=== PATIENT | male | born 1985 | race Caucasian/White ===

== ENCOUNTER 2016-06-28 21:48 | Emergency (ER) | payer OTHER ==
[~2016-06-28] VITALS: Ht 185.4 cm; Wt 74.8 kg
[2016-06-28 22:10] LABS: ABSOLUTE BASOPHIL COUNT 0 /CUMM (0.0-0.2); ABSOLUTE EOSINOPHIL COUNT 0 /CUMM (0.0-0.7); ABSOLUTE GRANULOCYTE CT 2.8 /CUMM (1.4-6.5); ABSOLUTE LYMPH COUNT 1.6 /CUMM (1.2-3.4); ABSOLUTE MONOCYTE COUNT 0.4 /CUMM (0.10-0.60); BASOPHIL % 0.9 % (0.0-2.0); EOSINOPHIL % 0.9 % (0-5); GRANULOCYTE % 57.3 % (42.2-75.2); HEMATOCRIT 43.6 % (42-52); MEAN CORPUSCULAR HGB 28.4 PG (27.0-31.0); MEAN CORPUSCULAR HGB CONC 33.6 G/DL (33.0-37.0); MEAN CORPUSCULAR VOLUME 84.6 FL (80.0-94.0); MEAN PLATELET VOLUME 6.5 FL (7.4-10.4); PLATELET COUNT 247 /CUMM (130-400); RBC DISTRIBUTION WIDTH 13.8 % (11.5-14.5); RED BLOOD CELL CT 5.15 /CUMM (4.70-6.10); WHITE BLOOD CELL COUNT 4.9 /CUMM (4.8-10.8)
--- NOTE | 2016-06-28 23:10 | ED GI/GU/ABDOMINAL COMPLAINT ---
History of Present Illness General Chief Complaint: General Adult Stated Complaint: VOMITING BLOOD Source: patient, family Exam Limitations: no limitations Vital Signs & Intake/Output Vital Signs & Intake/Output Vital Signs Date Time Temp Pulse Resp B/P Pulse O2 O2 Flow FiO2 Ox Delivery Rate 06/29 0017 98.2 59 18 134/92 98 Room Air 06/28 2153 98.3 78 20 115/81 96 Room Air ED Intake and Output 06/29 0000 06/28 1200 Intake Total Output Total Balance Patient 165 lb Weight Allergies Coded Allergies: No Known Drug Allergies (NKDA 06/28/16) Reconcile Medications No Known Home Medications Triage Note: PT TO ED C/O VOMITTING BLOOD OFF AND ON FOR A COUPLE YEARS. DX WITH HIATAL HERNIA 5 YRS AGO. STATES HAS GOTTEN MORE FREQUENT AND PAINFUL. DOES DRINK "MORE THAN I SHOULD" ADMITS TO 1/2-1 PINT OF VODKA DAILY. INJECTED HEROIN YESTERDAY. DOES TAKE 50 MG METHADONE DAILY. HAS NOT STOPPED DRINKING IN A COUPLE OF YEARS. DENIES PMH OF SEIZURES WHEN HE STOPS DRINKING IS IN IOP R/T PMH OF DRUG ABUSE. HR 78 Triage Nurses Notes Reviewed? yes HPI: Patient states that he has been vomiting bright red blood since earlier this afternoon. Patient states that he has vomited approximately 6 times with bright red blood each time. Patient states he had vomited coffee ground material in the past and saw a retail sales professional. He had an endoscopy and was told that he had a tear in his esophagus as well as a hiatal hernia. Patient states she was not put on any medications and has not had any problems since until today. Patient is now complaining of sharp stabbing abdominal pain diffusely. There is no radiation outside of the abdominal area. The pain is constant. He rates the pain as 7 out of 10. There are no aggravating or mitigating factors. There is no diarrhea. Past History Travel History Traveled to [place] past 21 day No Medical History Any Pertinent Medical History? see below for history Gastrointestinal: hiatal hernia Psychiatric: substance abuse Surgical History Surgical History: non-contributory Psychosocial History What is your primary language Frisian Tobacco Use: Never used ETOH Use: alcoholic Illicit Drug Use: heroin Family History Hx Contributory? No Review of Systems Review of Systems Constitutional: Reports: no symptoms. EENTM: Reports: no symptoms. Respiratory: Reports: no symptoms. Cardiovascular: Reports: no symptoms. GI: Reports: see HPI, abdominal pain, nausea, vomiting. Genitourinary: Reports: no symptoms. Musculoskeletal: Reports: no symptoms. Skin: Reports: no symptoms. Neurological/Psychological: Reports: no symptoms. Hematologic/Endocrine: Reports: no symptoms. Immunologic/Allergic: Reports: no symptoms. All Other Systems: Reviewed and Negative Physical Exam Physical Exam General Appearance: well developed/nourished, alert, awake, anxious, moderate distress Head: atraumatic, normal appearance Eyes: Bilateral: PERRL, EOMI. Ears, Nose, Throat, Mouth: hearing grossly normal, DRY MUCUS MEMBRANES Neck: normal inspection, supple, full range of motion Respiratory: normal breath sounds, chest non-tender, no respiratory distress, lungs clear Cardiovascular: regular rate/rhythm, normal peripheral pulses Gastrointestinal: normal bowel sounds, soft, no organomegaly, tenderness ( DIFFUSE), NO REBOUND OR GUARDING Back: normal inspection, normal range of motion Extremities: normal range of motion Neurologic/Psych: no motor/sensory deficits, awake, alert, oriented x 3, normal gait, normal mood/affect Skin: intact, normal color, warm/dry Core Measures ACS in differential dx? No Severe Sepsis Present: No Septic Shock Present: No Progress Differential Diagnosis: esophageal varices, gastritis, hepatitis, ischemic bowel , inflamm bowel dis, pancreatitis, peptic ulcer, PUD/GERD, perforated viscous Plan of Care: Orders Procedure Date/time Status URINE DRUG SCREEN FOR ER ONLY 06/28 2158 Complete URINALYSIS 06/28 2158 Complete LIPASE 06/28 2158 Complete ETHANOL 06/28 2158 Complete COMPREHENSIVE METABOLIC PANEL 06/28 2158 Complete CBC WITHOUT DIFFERENTIAL 06/28 2158 Complete AMYLASE 06/28 2158 Complete Laboratory Tests 06/28/16 2302: Methadone Screen > 735 H, Barbiturate Screen < 60, Ur Phencyclidine Scrn 8.30, Amphetamines Screen < 100, U Benzodiazepines Scrn < 85, Urine Cocaine Screen 95, Urine Cannabis Screen < 5.00, Urinalysis LIGHT H, Urine Color YEL, Urine Clarity HAZY H, Urine pH 6.0, Ur Specific [place] 1.020, Urine Protein NEG, Urine Ketones NEG, Urine Nitrite NEG, Urine Bilirubin NEG, Urine Urobilinogen 0.2, Ur Leukocyte Esterase NEG, Ur Microscopic SEDIMENT EXAMINED, Urine RBC RARE , Urine WBC 1-3 H, Ur Epithelial Cells FEW, Urine Bacteria FEW H, Urine Mucus FEW, Urine Hemoglobin TRACE-INTACT H, Urine Glucose NEG 06/28/16 2202: Anion Gap 11, Estimated GFR > 60, BUN/Creatinine Ratio 13.0, Glucose 95, Calcium 9.6, Total Bilirubin 0.6, AST 43, ALT 42, Alkaline Phosphatase 69, Total Protein 7.9, Albumin 4.8, Globulin 3.1, Albumin/Globulin Ratio 1.5, Amylase 85, Lipase 72, CBC w Diff NO MAN DIFF REQ, RBC 5.15, MCV 84.6, MCH 28.4, RDW 13.8, MPV 6.5 L, Gran % 57.3, Lymphocytes % 31.9, Monocytes % 9.0, Eosinophils % 0.9, Basophils % 0.9, Absolute Granulocytes 2.8, Absolute Lymphocytes 1.6, Absolute Monocytes 0.4, Absolute Eosinophils 0, Absolute Basophils 0, PUBS MCHC 33.6, Serum Alcohol 82.0 Diagnostic Imaging: Viewed by Me: CT Scan. Discussed w/RAD: CT Scan. Radiology Impression: PATIENT: AMANUEL INFANTE PRESENT AGE: 31 PATIENT ACCOUNT NO: [id number] : 85 LOCATION: [facility] ORDERING PHYSICIAN: LESLIE HORN MD SERVICE DATE: 06/28/16 EXAM TYPE: CAT - CT ABD & PELVIS W IV CONTRAST EXAMINATION: CT ABDOMEN AND PELVIS WITH CONTRAST CLINICAL INFORMATION: Diffuse abdominal pain. Question perforation. COMPARISON: No relevant prior imaging is available. TECHNIQUE: Multidetector volumetric imaging was performed of the abdomen and pelvis before and after the IV administration of 95 mL of Optiray 320 intravenous contrast. Sagittal and coronal reformatted images were obtained on the technologist's workstation. DLP: 246.14 mGy-cm FINDINGS: LUNG BASES: Lung bases are clear. There is no pleural or pericardial effusion. LIVER, GALLBLADDER, AND BILIARY TREE: Liver attenuation is homogeneous with no evidence of discrete mass. The gallbladder is normal. There is no intrahepatic or extrahepatic biliary ductal dilatation. PANCREAS: Unremarkable. SPLEEN: Unremarkable. ADRENAL GLANDS: Unremarkable. KIDNEYS AND URETERS: The kidneys demonstrate symmetric corticomedullary enhancement. There is no hydronephrosis. No worrisome perinephric inflammation or collection. There is no nephrolithiasis and no worrisome mass or calcification along the expected course of the right or left ureters. BLADDER: Unremarkable. GASTROINTESTINAL TRACT: The stomach and small bowel are normal. The appendix is normal. Intraluminal gas and stool is visualized within the colon. A few scattered diverticula are visualized within the distal descending colon and sigmoid colon. No abnormal perirectal or presacral inflammation. There is no free intraperitoneal air or fluid. ABDOMINAL WALL: No significant hernia is appreciated. LYMPH NODES: There are a few scattered nonspecific mesenteric lymph nodes. VASCULAR: The abdominal aorta and inferior vena cava are unremarkable. PELVIC VISCERA: Unremarkable. OSSEOUS STRUCTURES: There is no worrisome lytic or blastic osseous lesion. No acute fracture. IMPRESSION: There are a few scattered nonspecific mesenteric lymph nodes. Otherwise unremarkable CT scan of abdomen and pelvis. No evidence of small bowel obstruction. No free intraperitoneal air or fluid. The appendix is normal. DICTATED BY: DEONNA GR MD DATE/TIME DICTATED:06/29/1657 RESTROOMS OR LOUNGES MAID:GEORGINA DATE/TIME TRANSCRIBED:57 CONFIDENTIAL, DO NOT COPY WITHOUT APPROPRIATE AUTHORIZATION. < Electronically signed in Other Vendor System> SIGNED BY: DEONNA GR MD 06/29/16 0120 Initial ED EKG: none Departure Departure Disposition: HOME OR SELF CARE Condition: Stable Clinical Impression Primary Impression: Upper GI bleed Referrals: KEYLA SALAS MD PATIENT HAS NO PRIMARY CARE DR (PCP/Family) Additional Instructions: TAKE MEDICINE PRESCRIBED RETURN FOR ANY CONCERNS Departure Forms: Customer Survey General Discharge Information Prescriptions: Current Visit Scripts Esomeprazole (Nexium) 1 CAP PO DAILY #30 CAP Ondansetron (Zofran Odt) 1 TAB SL TID PRN NAUSEA #10 TAB
--- NOTE | 2016-06-29 01:20 | CT SCAN REPORT ---
EXAMINATION: CT ABDOMEN AND PELVIS WITH CONTRAST CLINICAL INFORMATION: Diffuse abdominal pain. Question perforation. COMPARISON: No relevant prior imaging is available. TECHNIQUE: Multidetector volumetric imaging was performed of the abdomen and pelvis before and after the IV administration of 95 mL of Optiray 320 intravenous contrast. Sagittal and coronal reformatted images were obtained on the technologist's workstation. DLP: 246.14 mGy-cm FINDINGS: LUNG BASES: Lung bases are clear. There is no pleural or pericardial effusion. LIVER, GALLBLADDER, AND BILIARY TREE: Liver attenuation is homogeneous with no evidence of discrete mass. The gallbladder is normal. There is no intrahepatic or extrahepatic biliary ductal dilatation. PANCREAS: Unremarkable. SPLEEN: Unremarkable. ADRENAL GLANDS: Unremarkable. KIDNEYS AND URETERS: The kidneys demonstrate symmetric corticomedullary enhancement. There is no hydronephrosis. No worrisome perinephric inflammation or collection. There is no nephrolithiasis and no worrisome mass or calcification along the expected course of the right or left ureters. BLADDER: Unremarkable. GASTROINTESTINAL TRACT: The stomach and small bowel are normal. The appendix is normal. Intraluminal gas and stool is visualized within the colon. A few scattered diverticula are visualized within the distal descending colon and sigmoid colon. No abnormal perirectal or presacral inflammation. There is no free intraperitoneal air or fluid. ABDOMINAL WALL: No significant hernia is appreciated. LYMPH NODES: There are a few scattered nonspecific mesenteric lymph nodes. VASCULAR: The abdominal aorta and inferior vena cava are unremarkable. PELVIC VISCERA: Unremarkable. OSSEOUS STRUCTURES: There is no worrisome lytic or blastic osseous lesion. No acute fracture. IMPRESSION: There are a few scattered nonspecific mesenteric lymph nodes. Otherwise unremarkable CT scan of abdomen and pelvis. No evidence of small bowel obstruction. No free intraperitoneal air or fluid. The appendix is normal.
[2016-06-29] MEDS ORDERED: ZOFRAN ODT4 M1 SL (01:31)
[2016-06-29] MEDS ORDERED: NEXIUM40 M1 PO (01:31)
[2016-06-29 01:50] VITALS: BP 130/89
== END 2016-06-29 01:51 ==
LOC: ERH 21:48
PROVIDERS: Emergency Medicine
DX: K92.2 Gastrointestinal hemorrhage, unspecified (principal)
CPT/HCPCS: 74177; 80307; 81001; 96361; 96374; 96375; 99291; G0480; J1885; J2405